=== PATIENT | male | born 1960 | race Caucasian/White ===

== ENCOUNTER → 2024-04-08 | Outpatient (CLI) | payer BC ==
--- NOTE | 2024-04-08 13:54 | CT ---
EXAMINATION TYPE: CT ankle RT wo con CT DLP: 275.50 mGycm, Automated exposure control for dose reduction was used. DATE OF EXAM: 04/08/2024 1:35 PM COMPARISON: . None CLINICAL INDICATION:Male, 64 years old with history of M79.671 Pain, S92.061A Displaced fx r calcaneo us; PHH, Displaced fx r calcaneous TECHNIQUE: Axial images were obtained of the CT ankle RT wo con, Additional coronal and sagittal refo rmatted images and soft tissue and bone window were obtained for review. 3-D reconstruction was creat ed on a separate workstation. Contrast used: mL of , (None if empty) Oral contrast used: (None if empty) FINDINGS: Diffuse soft tissue edema throughout the lower extremity leg. There is comminuted fracture of the calcaneus with flattening of the calcaneus. Intra-articular extension to the subtalar joints a nd calcaneocuboid joint is present. There is mild step-off of the posterior subtalar joint up to 5 mm . Mild degeneration changes of the wrist remainder of the joints with osteophyte formation and joint space tearing. The remainder of the osseous structures are intact. IMPRESSION: Severely Comminuted calcaneal fracture with intra-articular extension to the subtalar joints and calc aneocuboid joint.
== END | disposition home or self-care (01) ==
LOC: RADCTMAIN 13:04
PROVIDERS: ATTEND Podiatrist
DX: S92.061A Displaced intraarticular fracture of right calcaneus, initial encounter for closed fracture (principal)

== ENCOUNTER 2024-04-15 08:27 | Day surgery (SDC) | payer BC ==
[2024-04-13 14:33] VITALS: BMI 37.1
[~2024-04-15 08:27] MED LIST: HYDROmorphone 0.5 MG/0.5 ML SYRINGE IVP PRN; MIDAZOLAM 2 MG/2 ML VIAL IV PRN
[2024-04-15] MEDS: IV FLUID CONTINUATION 1,000 ML IV ONE (09:28)
[2024-04-15 09:33] LABS: Glucose,Whole Blood 139 mg/dL (70-110)
[2024-04-15 09:39] LABS: African American GFR (CKD) >90 (>60 ml/min/1.73 sqM); Anion Gap 6 mmol/L; Blood Urea Nitrogen 17 mg/dL (9-20); Calcium 8.7 mg/dL (8.4-10.2); Carbon Dioxide 27 mmol/L (22-30); Chloride 108 mmol/L (98-107); Glucose 131 mg/dL (74-99); Non-African American GFR(CKD) >90 (>60 ml/min/1.73 sqM); Sodium 141 mmol/L (137-145)
[2024-04-15] MEDS: LACTATED RINGERS 1,000 ML IV SCH (09:39)
[2024-04-15] MEDS: DEXAMETHASONE SOD PHOSPHATE 4 MG/ML 1 ML VIAL IV ONE (09:39)
[2024-04-15] MEDS: ONDANSETRON 4 MG/2 ML VIAL IVP ONE (09:40)
[2024-04-15] MEDS: SCOPOLAMINE 1 MG/72 HR PATCH TRANSDERM ONE (09:41)
[2024-04-15 09:45] LABS: Potassium 3.4 mmol/L (3.5-5.1)
[2024-04-15] MEDS: MIDAZOLAM 2 MG/2 ML VIAL IVP ONE (09:48)
--- NOTE | 2024-04-15 10:10 | P.ANPRN ---
Procedure Note - Anesthesia - Nerve Block Performed Right Popliteal Single Time Out Performed: Yes Date of Procedure: 04/15/24 Procedure Start Time: 09:49 Procedure Stop Time: :54 Location of Patient: PreOp Indication: Acute Post-Operative Pain, Analgesia, Requested by Surgeon Sedation Type: Sedate with meaningful contact maintained Preparation: Sterile Prep Position: Left Lateral Needle Types: Pajunk Needle Gauge: 21 Ultrasound used to visualize needle placement: Yes Ultrasound used to observe medication spread: Yes Injectate: 0.5% Ropivacaine (see comment for volume) ([id number]+decadron 4mg.) Blood Aspirated: No Pain Paresthesia on Injection Noted: No Resistance on Injection: Normal Image Stored and Saved: Yes Events: Uneventful and Well Tolerated
--- NOTE | 2024-04-15 10:11 | P.ANPRN ---
Procedure Note - Anesthesia - Nerve Block Performed Right Adductor Canal Single Time Out Performed: Yes Date of Procedure: 04/15/24 Procedure Start Time: 09:55 Procedure Stop Time: 10:00 Location of Patient: PreOp Indication: Acute Post-Operative Pain, Analgesia, Requested by Surgeon Sedation Type: Sedate with meaningful contact maintained Preparation: Sterile Prep Position: Supine Catheter: None Needle Types: Pajunk Needle Gauge: 21 Ultrasound used to visualize needle placement: Yes Ultrasound used to observe medication spread: Yes Injectate: 0.5% Ropivacaine (see comment for volume) (Ropiv 15ml+[id number].) Blood Aspirated: No Pain Paresthesia on Injection Noted: No Resistance on Injection: Normal Image Stored and Saved: Yes Events: Uneventful and Well Tolerated
[2024-04-15 11:51] VITALS: TEMP 97.7
--- NOTE | 2024-04-15 11:54 | P.OP ---
Date of Procedure: 04/15/24 Preoperative Diagnosis: displaced, intra-articular fracture of right calcaneus Postoperative Diagnosis: same Procedure(s) Performed: open reduction with internal fixation right calcaneus fracture Implants: Thebes 5.0 mm screws 3 Anesthesia: MARQUEZ Surgeon: Rufino Hwang [employer] Supervisor #1: Arpit Robbins Estimated Blood Loss (ml): 5 Pathology: none sent Condition: stable Disposition: PACU Description of Procedure: Prior to the patient being brought to the operative room, anesthesia administered a nerve block on the right lower extremity. The patient brought into the operative room placed on table supine position. Timeout was taken to confirm correct patient identifiers, correct laterally of surgery, and correct procedure. Once all staff in the room were in agreement timeout, the patient was induced and placed under general anesthesia. The patient was then rolled in the lateral decubitus position with beanbag. The beanbag was deflated to maintain the position of the patient. The patient was secured to the table. A wedge was placed underneath the right foot elevated off the table. Adequate was placed in the axillary area, and the arm chambers used for the right arm. Once position was satisfactory, the right leg was prepped and draped usual manner. Under direct fluoroscopic visualization, landmarks of the posterior calcaneus were identified for the placement of the Schanz pin. Small stab incision was m kiesha and under drilling was performed into the superior aspect of the calcaneal body fracture. The Schanz pin was inserted to proper depth and then plantar forceps was used to try to close the fracture down a realigned the posterior facet of the subtalar joint. It was necessary to inserted a elevator laterally into the fracture line with dorsal pressure to push the posterior facet back up into position while simultaneously plantarflexing the tuberosity fracture. with those manipulations, the posterior facet was able to be decompressed and realigned, restoring the cortical ankle. A guidewire for a 5. millimeters screws then placed on the posterior superior aspect of the calcaneal body just lateral to the Achilles insertion. This is placed perpendicular to the fracture line out the plantar aspect of the calcaneus, just anterior to the tuberosity. A second wire was then placed superior to the fracture line and advanced from posterior medial to distal lateral just underneath the critical angle and the subtalar joint and entering into the anterior process of the calcaneus. Fluoroscopic imaging confirmed the proper alignment of both the screws. The first screw placed was a compression screw across the fracture. It was a RC threaded cannulated screw. It was advanced until the plantar cortex was reached and compression was achieved. Then the second screw was a fully threaded screw placed over the second guidewire. Fluoroscopic imaging showed yazdanism of the critical angle and compression of the fracture line. The final screw was a tuberosity screw from the posterior aspect parallel to the first screw that went into the anterior process. This is done with a similar technique. The lateral and axial calcaneal views under fluoroscopy showed yazdanism of the posterior facet of subtalar joint as well as proper placement of hardware. All wires were removed and the wounds thoroughly irrigated. Skin closure was done with 3-0 nylon. A bulky dry dressings applied to the right foot. Then a well-padded, well molded plaster posterior mold/sugar tong splint was applied to the right leg. The ankle was held in slight plantarflexion as it dried. The patient tolerated the above procedure and anesthesia well which recovery with vital signs stable. due to the complexity of the procedure, Dr. Arpit Robbins was utilized as an respiratory equipment assistant during this procedure to aid in positioning of the patient, room set up, respiratory equipment assistant application of the internal fixation, and application of the postoperative splint.
--- NOTE | 2024-04-15 12:04 | FL ---
EXAMINATION TYPE: FL guidance operating room, XR calcaneus 2V RT Intraoperative/procedural fluoroscop ic services were provided. Total fluoroscopy time is 1 min 39 seconds with a total of 4 submitted simona ges to PACS. Please see the operative/procedural note for further details. DAP: 0.6587 Gycm2
[2024-04-15 12:34] VITALS: RESP 16
[2024-04-15 12:52] VITALS: BP 148/71; PULSE 71
[2024-04-15 13:15] LABS: Glucose,Whole Blood 155 mg/dL (70-110)
== END 2024-04-15 13:20 | disposition home or self-care (01) ==
LOC: OR 08:27
PROVIDERS: ATTEND Podiatrist
DX: S92.061A Displaced intraarticular fracture of right calcaneus, initial encounter for closed fracture (principal); G89.18 Other acute postprocedural pain; I12.9 Hypertensive chronic kidney disease with stage 1 through stage 4 chronic kidney disease, or unspecified chronic kidney disease; E11.22 Type 2 diabetes mellitus with diabetic chronic kidney disease; N18.9 Chronic kidney disease, unspecified; E11.69 Type 2 diabetes mellitus with other specified complication; E78.5 Hyperlipidemia, unspecified; G47.33 Obstructive sleep apnea (adult) (pediatric); J45.909 Unspecified asthma, uncomplicated; Z88.5 Allergy status to narcotic agent; Z79.84 Long term (current) use of oral hypoglycemic drugs; Z79.899 Other long term (current) drug therapy; Z79.4 Long term (current) use of insulin; W11.XXXA Fall on and from ladder, initial encounter
CPT/HCPCS: 80048; 73650; 28415; 64447; 64445; J2250; J1100; J0690; J2405

== ENCOUNTER 2024-06-23 06:47 | Day surgery (SDC) | payer BC ==
[~2024-06-23 06:47] MED LIST changes: -HYDROmorphone 0.5 MG/0.5 ML SYRINGE IVP PRN; +LACTATED RINGERS 1,000 ML IV SCH; -MIDAZOLAM 2 MG/2 ML VIAL IV PRN
[2024-06-23] MEDS: IV FLUID CONTINUATION 1,000 ML IV ONE ×2 (07:05→07:34)
[2024-06-23 07:21] LABS: Glucose,Whole Blood 72 mg/dL (70-110)
[2024-06-23 07:31] VITALS: RESP 16; TEMP 97.4
[2024-06-23] MEDS ORDERED: PROPOFOL 10 MG/ML 20 ML VIAL IV ONE (07:35)
--- NOTE | 2024-06-23 07:58 | P.GSHP ---
History of Present Illness H&P Date: 06/23/24 Chief Complaint: Screening colonoscopy 64-year-old male presents today for screening colonoscopy. Patient denies any significant GI complaints. Past Medical History Past Medical History: Asthma, Diabetes Mellitus, Hearing Disorder / Deafness, Hyperlipidemia, Hypertension, Osteoarthritis (OA), Prostate Disorder, Sleep Apnea/CPAP/BIPAP Additional Past Medical History / Comment(s): Mild Asthma, no real problems since 2019. Hard of hearing. Varicose veins. Hx slightly low Potassium/protein in urine, saw Kidney Dr, was told nothing to worry about. Enlarged prostate. CPAP use. History of Any Multi-Drug Resistant Organisms: None Reported Past Surgical History: Hernia Repair Additional Past Surgical History / Comment(s): Colonoscopy. foot surgery Past Anesthesia/Blood Transfusion Reactions: No Reported Reaction Smoking Status: Never smoker - Past Family History Mother Family Medical History: Cancer Medications and Allergies Home Medications Medication Instructions Recorded Confirmed Type Atorvastatin [Lipitor] 40 mg PO HS 01/14/24 06/23/24 History Dutasteride 0.5 mg PO [facility] 01/14/24 06/23/24 History Insulin Degludec/Liraglutide 29 units SQ 01/14/24 06/23/24 History [Xultophy 100 Unit-3.6MG/ml Pen] Potassium Chloride ER [K-Dur 10] 10 meq PO DAILY 01/14/24 06/23/24 History Sertraline HCl [Zoloft] 150 mg PO QAM 01/14/24 06/23/24 History Tamsulosin [Flomax] 0.8 mg PO [facility] 01/14/24 06/23/24 History Tolterodine Tartrate [Tolterodine 4 mg PO DAILY 01/14/24 06/23/24 History Tartrate ER] Ubidecarenone [Co Q-10] 200 mg PO QAM 01/14/24 06/23/24 History Vit C/E/Zn/Coppr/Lutein/Zeaxan 1 each PO QAM 01/14/24 06/23/24 History [Preservision Areds 2 Softgel] Vitamin B (Unknown Dose) 1 tab PO Q14D 01/14/24 06/23/24 History Acetaminophen [Tylenol Extra 500 - 1,000 mg PO Q4-6H PRN 04/13/24 06/23/24 History Strength] Dapagliflozin Propanediol [Farxiga] 5 mg PO DAILY 04/13/24 06/23/24 History Ginkgo Biloba [place] Extract [Ginkgo] 3,000 mg PO QAM 04/13/24 06/23/24 History amLODIPine 10 mg PO HS 04/13/24 06/23/24 History lisinopriL [Zestril] 20 mg PO HS 04/13/24 06/23/24 History Aspirin 81 mg PO DAILY 06/17/24 06/23/24 History Allergies Allergy/AdvReac Type Severity Reaction Status Date / Time codeine Allergy Ringing in Verified 06/23/24 07:09 ears, feel hot Surgical - Exam Vital Signs Temp Pulse Resp BP Pulse Ox 97.4 F L 72 16 169/84 98 06/23/24 07:05 06/23/24 07:05 06/23/24 07:05 06/23/24 07:05 06/23/24 07:05 - General well developed, well nourished, no distress - Eyes PERRL - ENT normal pinna - Neck no masses - Respiratory normal expansion - Cardiovascular Rhythm: regular - Abdomen Abdomen: soft, non tender Assessment and Plan Assessment: Will perform screening colonoscopy.
--- NOTE | 2024-06-23 07:59 | P.OP ---
Date of Procedure: 06/23/24 Preoperative Diagnosis: Screening colonoscopy Postoperative Diagnosis: Diverticulosis Procedure(s) Performed: Colonoscopy Anesthesia: MAC Surgeon: Dougie Zazueta Pathology: none sent Condition: stable Disposition: PACU Description of Procedure: The patient was placed on the endoscopy table in the lateral position. He received IV sedation. Digital rectal exams performed. This revealed no abnormalities. The flexible colonoscope was then placed patient anus passed throughout the entire colon. The ileocecal valve was visualized. The cecum, ascending and transverse colon appeared normal. The descending sigmoid colon there is extensive diverticular changes. Scope was brought back to the rectum and this appeared normal. Scope withdrawn the patient.
[2024-06-23 08:18] VITALS: BP 150/74; PULSE 70
== END 2024-06-23 09:11 | disposition home or self-care (01) ==
LOC: ORWHC2ENDO 06:47
PROVIDERS: ATTEND Surgery
DX: Z12.11 Encounter for screening for malignant neoplasm of colon (principal); K57.30 Diverticulosis of large intestine without perforation or abscess without bleeding; E11.9 Type 2 diabetes mellitus without complications; E78.5 Hyperlipidemia, unspecified; G47.30 Sleep apnea, unspecified; I10 Essential (primary) hypertension; J45.909 Unspecified asthma, uncomplicated; M19.90 Unspecified osteoarthritis, unspecified site; N40.0 Benign prostatic hyperplasia without lower urinary tract symptoms; Z79.84 Long term (current) use of oral hypoglycemic drugs; Z98.890 Other specified postprocedural states; Z79.899 Other long term (current) drug therapy
CPT/HCPCS: 45378